=== PATIENT | male | born 1955 | race Caucasian/White ===

== ENCOUNTER 2020-03-29 06:21 | Inpatient (IN) | payer MEDICARE, OTHER ==
[2020-03-29] MEDS ORDERED: Midazolam HCl 2 mg/2 ml Vial ONE (06:55)
[2020-03-29] MEDS ORDERED: Acetaminophen 325 MG TAB PO PRN (08:01)
[2020-03-29] MEDS ORDERED: Morphine 4 MG/ML VIAL SLOW IVP PRN (08:01)
[2020-03-29] MEDS ORDERED: Ondansetron ODT 4 MG TAB SL PRN (08:01)
[2020-03-29] MEDS ORDERED: Lactated Ringer's 1,000 ML IV SCH (08:01)
[2020-03-29] MEDS ORDERED: Ondansetron PF 4 MG/2 ML Vial IVP PRN (08:01)
--- NOTE | 2020-03-29 09:03 | RAD ---
Radiograph abdomen one view: 03/29/2020 HISTORY: 64-year-old male with abdominal pain. "Small bowel obstruction transfer" COMPARISON: 03/27/2020 FINDINGS: There are 2 air-filled loops of small bowel in the upper abdomen, with caliber at upper limits of nor mal. There is a small amount of gas in a bowel loop in right lower quadrant. There is less gas now than on the prior KUB. There is a new catheter distal tip in body of stomach. There is moderate amoun t of gas in the stomach. IMPRESSION: 1. Paucity of bowel gas obscures the fact that there are multiple dilated fluid-filled small bowel lo ops demonstrated on CT of the same day, representing small bowel obstruction. 2. Esophagogastric tube in stomach
[2020-03-29 10:28] VITALS: BMI 30.3
--- NOTE | 2020-03-29 14:45 | PDOC.HHP ---
Hospitalist HPI abdominal pain History of Present Illness: This is a 64 year old male with history of prediabetes who presented to the ER with abdominal pain. He felt a knot in his stomach that was causing him discomfort this past week. The knot then started to cause him pain, so on Monday night he came to the ER. He was discharged home. When he got home, he did not feel like eating, was unable to pass gas or have any bowel movements, so he came back to the ER. The patient described the pain as a twisting, bloating sensati on that temporarily subsided, but came back around the time of his CT scan. He denied any radiation of his pain. He did not take anything at home to try to alleviate the pain. His pain was worsened by eating. He threw up after the contrast from his CT scan and had some nausea. He reports only two bowel movements in the past one week, which he describes as osito. He also reports less than 100 cc urine output for the past one week as well. The patient was diagnosed with COVID last week. He reports experiencing daily low grade fevers of 99 every afternoon. He also had a dry cough that subsided a few days ago but then came back yesterday. He denies chest pain, sore throat, runny nose. ED Course: When the patient presented to the ER, he had normal vitals. Labs showed sodium of 129, WBC of 13.67. UA was negative. Abdominal X ray showed paucity of bowel gas and multiple dilated fluid filled bowel loops concerning for obstruction. Chest x ray showed left lower lobe infiltrate. CT abdomen showed a small bowel obstruction, a small ventral hernia which contains several loops of dilated bowel. The patient was given 1L of fluid and 2 mg of versed. He had an NG tube placed. The patient states his pain has significantly improvement after placement of an NG tube Allergies/Adverse Reactions: Allergy/AdvReac Type Severity Reaction Status Date / Time No Known Allergies Allergy Verified 03/29/20 10:27 Home Medications: Medication Instructions Recorded Confirmed Type Doxycycline Monohydrate 100 mg PO BID 03/29/20 03/29/20 History metFORMIN [Glucophage] 500 mg PO QAM-WM 03/29/20 03/29/20 History Past History: PMHx: Prediabetes PSHx: SPlenectomy Bilateral arm surgery Hip replacement 2016 FHx: Both parents had hypertension, dad had CHF Social: The patient has never smoked. He does not drink. Denies alcohol or illicit drug use Hospitalist KATRINA ZAMORANO Constitutional: denies: fever, chills Eyes: denies: pain, vision change Respiratory: reports: cough. denies: dry, shortness of breath Cardiovascular: denies: chest pain, palpitations, orthopnea, paroxysmal noc. dyspnea Gastrointestinal: reports: nausea, vomiting (once after injection for CT scan), abdominal pain (improving) Genitourinary: denies: dysuria, frequency Musculoskeletal: denies: neck pain, shoulder pain Neurological: denies: weakness, numbness Hospitalist Exam Vitals: Vital Signs (12 hours) Temp Pulse Resp BP Pulse Ox 03/29/20 12:10 93 L 03/29/20 12:08 99.1 F 84 18 114/71 94 L 03/29/20 12:07 93 L 03/29/20 10:28 98.2 F 80 24 H 132/75 Weight Weight 217 lb 5 oz General Appearance: NAD, awake alert Eye: PERRL, anicteric sclera ENT: normocephalic atraumatic, no oropharyngeal lesions Neck: no JVD Heart: RRR, no murmur, no gallops, no rubs Respiratory: no ronchi, normal chest expansion Respiratory - other findings: mild crackles at the bases Gastrointestinal: soft, non-tender, non-distended Gastrointestinal - other findings: hypoactive bowel sounds Extremities: no cyanosis, no clubbing, no edema Skin: normal turgor, no lesions, no rashes Neurological: cranial nerve grossly intact, normal sensation to touch, no weakness Musculoskeletal: normal strength Psychiatric: normal affect, normal behavior, A&O x 3, oriented to person Hospitalist H&P A/P Plan: Abdominal X ray: paucity of bowel gas and multiple dilated fluid filled bowel loops concerning for obstruction. Chest x ray :left lower lobe infiltrate. CT abdomen: small bowel obstruction, a small ventral hernia which contains several loops of dilated bowel. This is a 64 year old male with prediabetes who was admitted with abdominal pain, found to have small bowel obstruction Small bowel obstruction - CT scan showed small bowel obstruction. NG tube was placed. Surgical consult placed, will follow - keep NPO for now - will add zofran prn for vomiting #COVID+ #Pneumonia #Leukocytosis - on room air currently, will monitor for any hypoxia . Chest Xray shows left lower lobe infiltrate. He has no productive cough currently so will hold off antibiotics since he is positive for COVID. Consider starting if symptoms worsen Hyponatremia - sodium 129, likely from dehydration. Will add IV fluids Prediabetes - on metformin, will hold for now DVT prophylaxis: SCDS, ambulation, lovenox Code status: full code
[2020-03-29] MEDS ORDERED: Enoxaparin Sodium 40 MG/0.4 ML SYRINGE SC SCH (15:15)
[2020-03-29] MEDS: Sodium Chloride 0.9% 1,000 ML IV SCH (15:28)
[2020-03-29 15:33] LABS: SARS-CoV-2 PCR by NAA DETECTED (NotDetected)
[2020-03-30] MEDS: Sodium Chloride 0.9% 1,000 ML IV SCH ×5 (00:35→20:04)
[2020-03-30 07:41] LABS: #Basophils 0.1 thou/uL (0.0-0.2); #Eosinphils 0.4 thou/uL (0.0-0.7); #Lymphocytes 1.5 thou/uL (1.20-3.40); #Monocytes 1.4 thou/uL (0.11-0.59); #Neutrophils 9.5 thou/uL (1.40-6.50); %Basophils 0.4 % (0.0-1.0); %Eosinophils 3.4 % (0.0-10.0); %Lymphocytes 11.8 % (21.0-51.0); %Monocytes 10.6 % (0.0-10.0); %Neutrophils 73.9 % (42.0-75.0); Hemoglobin 15.1 g/dL (14.0-18.0); Mean Corpuscular HGB CONC 33.4 g/dL (32.0-36.0); Mean Corpuscular Hemoglobin 32.7 pg (27.0-31.0); Mean Platelet Volume 8.1 fL (7.4-10.4); Platelet Count 334 thou/uL (130-400); RBC Distribution Width 11.7 % (11.5-14.5); Red Blood Cell (RBC) Count 4.61 mill/uL (4.70-6.10); White Blood Cell (WBC) Count 12.8 thou/uL (4.8-10.8)
[2020-03-30] MEDS: Enoxaparin Sodium 40 MG/0.4 ML SYRINGE SC SCH (07:46)
[2020-03-30 07:52] LABS: INR-International Normal Ratio 1.1; Prothrombin Time 14.2 sec (12.0-14.7)
[2020-03-30 08:05] LABS: ALT (SGPT) 12 U/L (8-55); AST (SGOT) 20 U/L (5-34); Albumin 3.3 g/dL (3.4-4.8); Alkaline Phosphatase 68 U/L (40-110); Anion Gap 12 mmol/L (10-20); BUN (Urea Nitrogen) 15 mg/dL (8.4-25.7); Bilirubin, Total 0.9 mg/dL (0.2-1.2); Calc. Creatinine Clearance 109 mL/min (70-130); Calcium 8.3 mg/dL (7.8-10.44); Carbon Dioxide 25 mmol/L (23-31); Chloride 103 mmol/L (98-107); Globulin 2.9 g/dL (2.4-3.5); Glucose 102 mg/dL (80-115); Magnesium 2.1 mg/dL (1.6-2.6); Potassium 3.7 mmol/L (3.5-5.1); Protein, Total 6.2 g/dL (5.8-8.1); Sodium 136 mmol/L (136-145)
--- NOTE | 2020-03-30 11:23 | PDOC.EVN ---
Event Note - Event Note Event Note: full dictation to follow. SBO, likely to resolve without surgery. Plan SBFT tomorrow.
--- NOTE | 2020-03-30 12:48 | CON ---
DATE OF CONSULTATION: 03/30/2020 CHIEF COMPLAINT: Bowel obstruction. HISTORY OF PRESENT ILLNESS: This is a 64-year-old male with a history of open splenectomy for trauma, who presents with a history of abdominal cramping pain associated with nausea, but no vomiting. He had not had a bowel movement for 4 to 5 days before admission to the hospital. He was transferred here from [facility]. He was COVID positive a week ago on Monday and this pain started later on in the week. He was transferred to [place] for higher level of care. He has NG tube in place that has put out minimal overnight. He denies any significant nausea. His pain is controlled. He has been having some urinary retention and has over 300 mL of urine in his bladder on bladder scan. He has only been able to urinate 40 mL at a time, but pain hedrick, he is doing well. PAST MEDICAL HISTORY: Includes COVID pneumonia, borderline diabetes. PAST SURGICAL HISTORY: Splenectomy, bilateral orthopedic arm surgery, hip replacement. MEDICINES: Metformin. ALLERGIES: NO KNOWN DRUG ALLERGIES. SOCIAL HISTORY: No smoking, alcohol, or other drugs. REVIEW OF SYSTEMS: Ten-system review of systems is otherwise negative unless described above. PHYSICAL EXAMINATION: VITAL SIGNS: Blood pressure is 150/80, pulse 84, respirations 20, he is afebrile. His NG tube has only put out 50 mL overnight. CHEST: Clear. HEART: Regular rate. ABDOMEN: Soft, minimally distended, mildly diffusely tender. Well-healed midline incision without hernia. EXTREMITIES: No ischemia or edema to extremities. LABORATORY DATA: White blood cell count is 12, hemoglobin 15, platelet count is 334. Creatinine is 0.94. Readings from CT scan of the abdomen from [place] was reviewed showing small-bowel obstruction, transition point in the upper abdomen. ASSESSMENT: 1. Partial small-bowel obstruction, likely secondary to adhesions from previous surgery. 2. COVID pneumonia, stable. PLAN: No need for surgical intervention at this time. Plan Gastrografin small-bowel follow-through tomorrow. Continue NG tube today. We will follow with you. Job ID: [id number]
--- NOTE | 2020-03-30 16:24 | PDOC.HOSPP ---
- Subjective Subjective: complaints of abd fullness, urinary retention, decr output. labs ok. denies n/v. NGT in place. appreciate surgery input - Objective Vital Signs & Weight: Vital Signs (12 hours) Temp Pulse Resp BP Pulse Ox 03/30/20 08:35 95 03/30/20 07:00 98.2 F 84 20 150/80 H 96 Weight Weight 217 lb 5 oz I&O: 03/29/20 03/30/20 03/31/20 06:59 06:59 06:59 Intake Total 350 Output Total 950 Balance -600 Result Diagrams: 03/30/20 07:30 03/30/20 07:30 Radiology Reviewed by me: Yes EKG Reviewed by me: Yes Hospitalist ROS - Medication Medications: Active Medications Generic Name Dose Route Start Last Admin Trade Name Freq PRN Reason Stop Dose Admin Enoxaparin Sodium 40 mg 03/30/20 09:00 03/30/20 07:46 Enoxaparin Sodium 40 Mg/0.4 Ml Syringe SC 40 mg 0900 [facility] Administration Sodium Chloride 1,000 mls @ 100 mls/hr 03/29/20 15:00 03/30/20 07:53 Normal Saline 0.9% IV Not Given .Q10H [facility] Hospitalist Exam Vitals: Vital Signs (12 hours) Temp Pulse Resp BP Pulse Ox 03/30/20 08:35 95 03/30/20 07:00 98.2 F 84 20 150/80 H 96 Weight Weight 217 lb 5 oz General Appearance: NAD Eye: PERRL ENT: normocephalic atraumatic Neck: supple Heart: RRR Respiratory: CTAB, no wheezes Gastrointestinal: soft, non-tender, diminished bowl sounds Extremities: no cyanosis Skin: normal turgor Neurological: cranial nerve grossly intact Musculoskeletal: normal tone Psychiatric: normal affect, normal behavior, A&O x 3 Hosp A/P - Plan This is a 64 year old male with prediabetes who was admitted with abdominal pa in, found to have small bowel obstruction Partial Small bowel obstruction - CT scan showed small bowel obstruction. - cont conservative mgt. NGT to LWS. appreciate Surgery input. - cont IVF hydration, replace lyte prn. Follow SBFT tomorrow Urinary retention - with oliguria. - add Flomax, Hicks - cont IVF hydration. Renal function stable. Follow BMP #COVID+ #Pneumonia #Leukocytosis - on room air currently, will monitor for any hypoxia . Chest Xray shows left lower lobe infiltrate. He has no productive cough currently so will hold off antibiotics since he is positive for COVID. Consider starting if symptoms worsen Hyponatremia - mild, normalized. Prediabetes - on metformin, will hold for now DVT prophylaxis: SCDS, ambulation, lovenox Code status: full code
[2020-03-31] MEDS: Sodium Chloride 0.9% 1,000 ML IV SCH ×2 (05:46→16:32)
[2020-03-31 06:05] LABS: #Eosinphils 0.9 thou/uL (0.0-0.7); #Lymphocytes 2.2 thou/uL (1.20-3.40); #Monocytes 1.3 thou/uL (0.11-0.59); #Neutrophils 7.5 thou/uL (1.40-6.50); %Basophils 0.2 % (0.0-1.0); %Eosinophils 7.4 % (0.0-10.0); %Lymphocytes 18.7 % (21.0-51.0); %Monocytes 10.8 % (0.0-10.0); %Neutrophils 62.9 % (42.0-75.0); Mean Corpuscular HGB CONC 33.8 g/dL (32.0-36.0); Mean Corpuscular Hemoglobin 33.5 pg (27.0-31.0); Mean Corpuscular Volume 99.1 fL (78.0-98.0); Mean Platelet Volume 8.1 fL (7.4-10.4); Platelet Count 363 thou/uL (130-400); RBC Distribution Width 11.9 % (11.5-14.5); Red Blood Cell (RBC) Count 4.18 mill/uL (4.70-6.10); White Blood Cell (WBC) Count 11.9 thou/uL (4.8-10.8)
[2020-03-31 06:33] LABS: Anion Gap 14 mmol/L (10-20); BUN (Urea Nitrogen) 17 mg/dL (8.4-25.7); Calc. Creatinine Clearance 112 mL/min (70-130); Calcium 8.2 mg/dL (7.8-10.44); Carbon Dioxide 24 mmol/L (23-31); Chloride 107 mmol/L (98-107); Glucose 81 mg/dL (80-115); Magnesium 2.1 mg/dL (1.6-2.6); Potassium 3.8 mmol/L (3.5-5.1); Sodium 141 mmol/L (136-145)
[2020-03-31] MEDS: Enoxaparin Sodium 40 MG/0.4 ML SYRINGE SC SCH (08:11)
[2020-03-31] MEDS: Tamsulosin HCl 0.4 MG CAP PO SCH (08:51)
[2020-03-31] MEDS ORDERED: MD-Gastroview 120 ML BOT ONE (12:15)
[2020-03-31] MEDS ORDERED: Ketorolac Tromethamine 30 MG/ML VIAL IVP PRN (15:55)
--- NOTE | 2020-03-31 16:29 | PDOC.HOSPP ---
- Subjective Subjective: Pt reports positive for flatus. voiding fine. SBFT pending. - Objective Vital Signs & Weight: Vital Signs (12 hours) Temp Pulse Resp BP Pulse Ox 03/31/20 08:30 94 L 03/31/20 08:10 98.1 F 90 20 134/71 94 L Weight Weight 217 lb 5 oz I&O: 03/30/20 03/31/20 04/01/20 06:59 06:59 06:59 Intake Total 350 2400 Output Total 950 1050 Balance -600 1350 Result Diagrams: 03/31/20 05:24 03/31/20 05:24 Hospitalist ROS - Medication Medications: Active Medications Generic Name Dose Route Start Last Admin Trade Name Freq PRN Reason Stop Dose Admin Enoxaparin Sodium 40 mg 03/30/20 09:00 03/31/20 08:11 Enoxaparin Sodium 40 Mg/0.4 Ml Syringe SC 40 mg 0900 [facility] Administration Sodium Chloride 1,000 mls @ 100 mls/hr 03/29/20 15:00 03/31/20 05:46 Normal Saline 0.9% IV 1,000 mls .Q10H [facility] Administration Ketorolac Tromethamine 30 mg 03/31/20 15:55 03/31/20 15:59 Ketorolac Tromethamine 30 Mg/Ml Vial IVP 04/05/20 15:56 30 mg Q6H PRN Administration Pain Sodium Chloride 10 ml 03/30/20 21:00 03/31/20 08:11 Flush - Normal Saline 10 Ml Syringe IVF 10 ml Q12HR [facility] Administration Tamsulosin HCl 0.4 mg 03/31/20 09:00 03/31/20 08:51 Tamsulosin Hcl 0.4 Mg Cap PO 0.4 mg DAILY [facility] Administration Hospitalist Exam Vitals: Vital Signs (12 hours) Temp Pulse Resp BP Pulse Ox 03/31/20 08:30 94 L 03/31/20 08:10 98.1 F 90 20 134/71 94 L Weight Weight 217 lb 5 oz General Appearance: NAD Eye: PERRL ENT: normocephalic atraumatic Neck: supple Heart: RRR Respiratory: CTAB, no wheezes Gastrointestinal: soft, diminished bowl sounds Extremities: no cyanosis Skin: normal turgor Hosp A/P - Plan This is a 64 year old male with prediabetes who was admitted with abdominal pain, found to have small bowel obstruction Partial Small bowel obstruction -cont conservative mgt. SBFT pending. Surgery is following - lytes OK. Follow AM labs Urinary retention - with oliguria. Resolved - cont Flomax. voiding well. Renal function normal. #COVID+ #Pneumonia #Leukocytosis - on room air currently, will monitor for any hypoxia . Chest Xray shows left lower lobe infiltrate. He has no productive cough currently so will hold off antibiotics since he is positive for COVID. Consider starting if symptoms worsen Hyponatremia - mild, normalized. Prediabetes - on metformin, will hold for now DVT prophylaxis: SCDS, ambulation, lovenox Code status: full code
--- NOTE | 2020-03-31 17:15 | RAD ---
EXAM: XR Small Bowel STANDARD PROVIDED CLINICAL HISTORY: Small bowel obstruction COMPARISON: CT abdomen and pelvis on 03/29/2020 FINDINGS: Nasogastric tube is noted in place. There are dilated loops of small bowel present also noted on CT e xam. There is persistent contrast seen within the stomach on the 6 hour delayed image with dilated contrast filled loops of small bowel seen. No contrast is seen in the colon on the 6 hour image. Find ings are compatible with small bowel obstruction. Prior CT examination did demonstrate normal caliber loops of small bowel further distally suggesting a high-grade partial small bowel obstruction . IMPRESSION: High-grade partial small bowel obstruction corresponding to findings on recent CT exam.
--- NOTE | 2020-03-31 17:28 | PDOC.GSPN ---
Surgery Progress Note: Subj - Subjective Narrative: c/o more bloating with SBFT today. No bm yet. Contrast did not make it to colon in 6 hours Surgery Progress Note: Obj - Vital signs Vital signs: Vital Signs - Most Recent Temp Pulse Resp BP Pulse Ox 98.1 F 90 20 134/71 94 L 03/31/20 08:10 03/31/20 08:10 03/31/20 08:10 03/31/20 08:10 03/31/20 08:30 - Physical Exam General: no distress Cardiovascular: regular rate and rhythm Respiratory: clear to auscultation Abdomen: soft, decreased bowel sounds, distended, other (No guarding or rebound) Surgery Progress Note: Results - Labs Result Diagrams: 03/31/20 05:24 03/31/20 05:24 Lab results: Laboratory Results - last 12 hr 03/31/20 03/31/20 05:24 05:24 WBC 11.9 H RBC 4.18 L Hgb 14.0 Hct 41.4 L MCV 99.1 H MCH 33.5 H MCHC 33.8 RDW 11.9 Plt Count 363 MPV 8.1 Neutrophils % 62.9 Lymphocytes % 18.7 L Monocytes % 10.8 H Eosinophils % 7.4 Basophils % 0.2 Neutrophils # 7.5 H Lymphocytes # 2.2 Monocytes # 1.3 H Eosinophils # 0.9 H Basophils # 0.0 Sodium 141 Potassium 3.8 Chloride 107 Carbon Dioxide 24 Anion Gap 14 BUN 17 Creatinine 0.92 Estimated GFR (MDRD) 83 Glucose 81 Calcium 8.2 Magnesium 2.1 Surgery Progress Note: A/P - Problem (1) Small bowel obstruction Current Visit: Yes Code(s): K56.609 - UNSP INTESTNL OBST, UNSP TO PARTIAL VERSUS COMPLETE OBST Status: Acute - Plan Plan: No contrast to colon in 6 hours -if no colon contrast in am will need ex lap, [place] -fluid bolus for low uop. -bladder scan, if high place abel.
[2020-03-31] MEDS ORDERED: Sodium Chloride 0.9% 1,000 ML IV SCH (17:30)
[2020-04-01] MEDS: Sodium Chloride 0.9% 1,000 ML IV SCH ×2 (07:30→15:48)
[2020-04-01] MEDS: Tamsulosin HCl 0.4 MG CAP PO SCH (08:38)
[2020-04-01] MEDS: Enoxaparin Sodium 40 MG/0.4 ML SYRINGE SC SCH (08:38)
--- NOTE | 2020-04-01 11:55 | RAD ---
Exam: 2 views abdomen HISTORY: Small bowel obstruction. Patient is status post Gastrografin small bowel into 04/18/2020 FINDINGS: Supine and upright view of the abdomen demonstrate persistent distended contrast-filled loo ps of small bowel with differential air-fluid levels. Paucity of air and contrast in the colon. Nasogastric tube is identified IMPRESSION: Persistent dilatation of the small bowel with contrast. High-grade small bowel obstructio n Findings conveyed to Dr. Gregorio [address] [place] connect to 05/16/2020 at 11:51 AM Code CR
[2020-04-01 13:26] LABS: #Eosinphils 0.5 thou/uL (0.0-0.7); #Lymphocytes 1.6 thou/uL (1.20-3.40); #Neutrophils 7.8 thou/uL (1.40-6.50); %Basophils 0.4 % (0.0-1.0); %Eosinophils 4.2 % (0.0-10.0); %Lymphocytes 14.9 % (21.0-51.0); %Monocytes 9.4 % (0.0-10.0); %Neutrophils 71.2 % (42.0-75.0); Hemoglobin 14.9 g/dL (14.0-18.0); Mean Corpuscular HGB CONC 33.7 g/dL (32.0-36.0); Mean Corpuscular Hemoglobin 33.4 pg (27.0-31.0); Mean Corpuscular Volume 99.3 fL (78.0-98.0); Mean Platelet Volume 7.9 fL (7.4-10.4); Platelet Count 458 thou/uL (130-400); RBC Distribution Width 11.8 % (11.5-14.5); Red Blood Cell (RBC) Count 4.44 mill/uL (4.70-6.10)
[2020-04-01 13:44] LABS: Anion Gap 14 mmol/L (10-20); BUN (Urea Nitrogen) 19 mg/dL (8.4-25.7); Calc. Creatinine Clearance 121 mL/min (70-130); Calcium 8.6 mg/dL (7.8-10.44); Carbon Dioxide 25 mmol/L (23-31); Chloride 108 mmol/L (98-107); Glucose 92 mg/dL (80-115); Potassium 3.9 mmol/L (3.5-5.1); Sodium 143 mmol/L (136-145)
--- NOTE | 2020-04-01 15:48 | PRG ---
DATE OF SERVICE: 04/01/2020 SUBJECTIVE: Mr. Carson had a couple bowel movements this morning, that he described as large. He has no complaints. No nausea. No bloating. X-rays done this morning show continued high-grade small-bowel obstruction. He does have some contrast in his colon, however. OBJECTIVE: On physical examination, his abdomen is soft. It is distended. He has occasional bowel sounds. NG tube output looks more bilious today. ASSESSMENT: High-grade small-bowel obstruction, but having a few bowel movements. The clinical picture is confusing. I think this is a partial obstruction, not a high-grade, however, now that he is 3 to 4 days into this. If not completely resolved by tomorrow, we will perform exploratory laparotomy. We will see him 1st thing in the morning to decide. Job ID: [id number]
--- NOTE | 2020-04-01 16:08 | PDOC.HOSPP ---
- Subjective Subjective: Patient was seen examined at bedside. He is further significant output from his NG tube. He also had a bowel movement today. However, his imaging studies showed that he has high-grade small bowel obstruction. His belly is benign, however she does have diminished bowel sounds. He denies any abdominal pain, but does complain of abdominal fullness. Surgery is following. - Objective Vital Signs & Weight: Vital Signs (12 hours) Temp Pulse Resp BP Pulse Ox 04/01/20 08:00 92 L 04/01/20 07:43 97.7 F 84 20 149/80 H 92 L Weight Weight 217 lb 5 oz I&O: 03/31/20 04/01/20 04/02/20 06:59 06:59 06:59 Intake Total 2400 2200 Output Total 1050 550 Balance 1350 1650 Result Diagrams: 04/01/20 13:09 04/01/20 13:09 Radiology Reviewed by me: Yes EKG Reviewed by me: Yes Hospitalist ROS - Medication Medications: Active Medications Generic Name Dose Route Start Last Admin Trade Name Freq PRN Reason Stop Dose Admin Enoxaparin Sodium 40 mg 03/30/20 09:00 04/01/20 08:38 Enoxaparin Sodium 40 Mg/0.4 Ml Syringe SC 40 mg 0900 [facility] Administration Sodium Chloride 1,000 mls @ 100 mls/hr 03/29/20 15:00 04/01/20 15:48 Normal Saline 0.9% IV 1,000 mls .Q10H [facility] Administration Ketorolac Tromethamine 30 mg 03/31/20 15:55 03/31/20 15:59 Ketorolac Tromethamine 30 Mg/Ml Vial IVP 04/05/20 15:56 30 mg Q6H PRN Administration Pain Sodium Chloride 10 ml 03/30/20 21:00 04/01/20 08:39 Flush - Normal Saline 10 Ml Syringe IVF Not Given Q12HR [facility] Tamsulosin HCl 0.4 mg 03/31/20 09:00 04/01/20 08:38 Tamsulosin Hcl 0.4 Mg Cap PO 0.4 mg DAILY [facility] Administration Hospitalist Exam Vitals: Vital Signs (12 hours) Temp Pulse Resp BP Pulse Ox 04/01/20 08:00 92 L 04/01/20 07:43 97.7 F 84 20 149/80 H 92 L Weight Weight 217 lb 5 oz General Appearance: NAD Eye: PERRL ENT: normocephalic atraumatic Neck: supple Heart: RRR Respiratory: CTAB Gastrointestinal: soft Extremities: no cyanosis Skin: normal turgor Neurological: cranial nerve grossly intact Musculoskeletal: normal tone, normal strength, no muscle wasting Psychiatric: normal affect, normal behavior, A&O x 3 Hosp A/P - Plan This is a 64 year old male with prediabetes who was admitted with abdominal pain, found to have small bowel obstruction Partial Small bowel obstruction - likely d/t adhesions from previous surgery --pt has bowel movement. No surgical abd on exam although he has diminished bowel sound. --SBFT shows high grade sbo; however, his clinical picture does not suggestive of high grade that requires emergent surgical intervention. --Cont NGT to LWS. Surgery is following, and consider ex lap in AM if no improvement. --Appreciate Dr. Gregorio's input Urinary retention - with oliguria. Resolved - cont Flomax. voiding well. Renal function normal. Consider Hicks placement if necessary #COVID+ #Pneumonia #Leukocytosis - on room air currently, will monitor for any hypoxia . Chest Xray shows left lower lobe infiltrate. He has no productive cough currently so will hold off antibiotics since he is positive for COVID. Consider starting if symptoms worsen Hyponatremia - mild, normalized. Prediabetes - on metformin, will hold for now DVT prophylaxis: SCDS, ambulation, lovenox Code status: full code
[2020-04-02] MEDS: Sodium Chloride 0.9% 1,000 ML IV SCH ×4 (02:20→20:44)
[2020-04-02 06:47] LABS: #Eosinphils 0.6 thou/uL (0.0-0.7); #Lymphocytes 2.2 thou/uL (1.20-3.40); #Neutrophils 5.9 thou/uL (1.40-6.50); %Basophils 0.4 % (0.0-1.0); %Eosinophils 6.5 % (0.0-10.0); %Lymphocytes 22.4 % (21.0-51.0); %Monocytes 9.9 % (0.0-10.0); %Neutrophils 60.9 % (42.0-75.0); Hemoglobin 14.2 g/dL (14.0-18.0); Mean Corpuscular Hemoglobin 33.2 pg (27.0-31.0); Mean Platelet Volume 7.9 fL (7.4-10.4); Platelet Count 439 thou/uL (130-400); RBC Distribution Width 11.7 % (11.5-14.5); Red Blood Cell (RBC) Count 4.28 mill/uL (4.70-6.10); White Blood Cell (WBC) Count 9.7 thou/uL (4.8-10.8)
[2020-04-02 06:53] LABS: INR-International Normal Ratio 1.1; Prothrombin Time 14.7 sec (12.0-14.7)
[2020-04-02 07:15] LABS: Anion Gap 18 mmol/L (10-20); BUN (Urea Nitrogen) 20 mg/dL (8.4-25.7); Calc. Creatinine Clearance 124 mL/min (70-130); Calcium 8.4 mg/dL (7.8-10.44); Carbon Dioxide 20 mmol/L (23-31); Chloride 111 mmol/L (98-107); Glucose 83 mg/dL (80-115); Potassium 3.5 mmol/L (3.5-5.1); Sodium 145 mmol/L (136-145)
[2020-04-02] MEDS: Enoxaparin Sodium 40 MG/0.4 ML SYRINGE SC SCH (07:26)
--- NOTE | 2020-04-02 07:57 | PRG ---
DATE OF SERVICE: 04/02/2020 SUBJECTIVE: Mr. Carson has no significant bowel function. He is still distended. OBJECTIVE: VITAL SIGNS: He is afebrile. Vital signs are stable. ABDOMEN: Distended. He has very little bowel sounds. He is diffuse mildly tender. ASSESSMENT: Small bowel obstruction, high grade, partial. He did have a few bowel movements after his small bowel follow through, but it has not completely resolved after 5 days. PLAN: Exploratory laparotomy. Risks, benefits, and alternatives discussed. He gave consent. We will do this today. Job ID: [id number]
[2020-04-02] MEDS ORDERED: cefOXitin Sodium/Dextrose 2 GM/50 ML BAG ONE (08:35)
[2020-04-02] MEDS ORDERED: Fentanyl 100 MCG/2 ML VIAL ONE ×3 (08:44→11:39)
[2020-04-02] MEDS ORDERED: Bupivacaine 0.25% HCL 30 ML VIAL ONE (08:52)
[2020-04-02] MEDS ORDERED: Rocuronium Bromide 10 MG/ML (10ML VIAL) ONE (09:58)
[2020-04-02] MEDS ORDERED: PHENYLEPHRINE-NS 100 MCG/ML 10 ML SYRINGE ONE (09:58)
[2020-04-02] MEDS ORDERED: diphenhydrAMINE 50 MG/ML VIAL ONE (09:58)
[2020-04-02] MEDS ORDERED: Succinylcholine 200 MG/10 ml SYRINGE FS ONE (09:58)
[2020-04-02] MEDS ORDERED: Ondansetron PF 4 MG/2 ML Vial ONE (09:58)
[2020-04-02] MEDS ORDERED: PROPOFOL 200 MG/20 ML VIAL ONE (09:58)
[2020-04-02] MEDS ORDERED: Lidocaine 1% PF 5 ML VIAL ONE (09:58)
[2020-04-02] MEDS ORDERED: Glycopyrrolate 0.2 MG/ML 5 ML SYRINGE ONE (09:58)
[2020-04-02] MEDS ORDERED: Ondansetron HCl/PF 4 MG/2 ML Vial IVP PRN (10:53)
[2020-04-02] MEDS ORDERED: Promethazine HCl 25 MG/ML VIAL SLOW IVP PRN (10:53)
[2020-04-02] MEDS ORDERED: Promethazine HCl 25 MG/ML VIAL IM PRN ×3 (10:53→11:08)
[2020-04-02] MEDS ORDERED: hydrALAZINE 20 MG/ML VIAL SLOW IVP PRN (10:58)
[2020-04-02] MEDS ORDERED: Dextrose 50% Abboject 50 ML SYRINGE SLOW IVP PRN ×2 (10:58)
[2020-04-02] MEDS ORDERED: Ondansetron PF 4 MG/2 ML Vial IVP PRN ×2 (10:58→11:08)
[2020-04-02] MEDS ORDERED: HumaLOG 300 UNITS/3 ML VIAL SC PRN (10:58)
[2020-04-02] MEDS ORDERED: Dextrose 5% in Water 1,000 ML IV PRN (10:58)
[2020-04-02] MEDS ORDERED: Ketorolac Tromethamine 30 MG/ML VIAL IVP PRN (10:58)
[2020-04-02] MEDS ORDERED: diphenhydrAMINE 50 MG/ML VIAL IVP PRN (11:08)
[2020-04-02] MEDS ORDERED: diphenhydrAMINE 50 MG/ML VIAL IM PRN (11:08)
[2020-04-02] MEDS ORDERED: diphenhydrAMINE 25 MG CAP PO PRN (11:08)
[2020-04-02] MEDS ORDERED: Zolpidem Tartrate 5 MG TAB PO PRN (11:08)
[2020-04-02] MEDS ORDERED: fentaNYL Citrate/PF 2,000 MCG in Sodium Chloride 0.9% 60 ML IV PRN (11:08)
[2020-04-02] MEDS ORDERED: Naloxone HCl 0.4 mg/ml Vial IV PRN (11:08)
[2020-04-02] MEDS ORDERED: Communication Order-Pharmacy FS SCH (11:15)
[2020-04-02] MEDS ORDERED: Ketorolac Tromethamine 30 MG/ML VIAL ONE (11:39)
[2020-04-02] MEDS: Tamsulosin HCl 0.4 MG CAP PO SCH (12:20)
--- NOTE | 2020-04-02 16:47 | PDOC.HOSPP ---
- Subjective Subjective: Patient was seen examined at bedside. He underwent ex lap today. He tolerated procedure well. Patient complained of expected postoperative pain. He is currently is on [employer] pump. - Objective Vital Signs & Weight: Vital Signs (12 hours) Temp Pulse Resp BP Pulse Ox 04/02/20 16:22 97.6 F 87 18 139/76 96 04/02/20 15:01 81 135/74 96 04/02/20 14:31 80 131/74 96 04/02/20 14:01 78 131/73 97 04/02/20 13:31 82 136/77 95 04/02/20 13:01 78 131/71 95 04/02/20 12:35 98.3 F 83 20 130/72 95 04/02/20 08:06 98.0 F 106 H 20 144/83 H 93 L 04/02/20 07:30 93 L 04/02/20 05:41 98.1 F 69 18 147/79 H 95 Weight Admit Weight 217 lb 5 oz Weight 217 lb 5 oz I&O: 04/01/20 04/02/20 04/03/20 06:59 06:59 06:59 Intake Total 2200 1200 Output Total 550 Balance 1650 1200 Result Diagrams: 04/02/20 06:08 04/02/20 06:08 Hospitalist ROS - Medication Medications: Active Medications Generic Name Dose Route Start Last Admin Trade Name Freq PRN Reason Stop Dose Admin Sodium Chloride 1,000 mls @ 110 mls/hr 04/02/20 10:58 04/02/20 12:35 Normal Saline 0.9% IV 1,000 mls .[id number] [facility] Administration Hospitalist Exam Vitals: Vital Signs (12 hours) Temp Pulse Resp BP Pulse Ox 04/02/20 16:22 97.6 F 87 18 139/76 96 04/02/20 15:01 81 135/74 96 04/02/20 14:31 80 131/74 96 04/02/20 14:01 78 131/73 97 04/02/20 13:31 82 136/77 95 04/02/20 13:01 78 131/71 95 04/02/20 12:35 98.3 F 83 20 130/72 95 04/02/20 08:06 98.0 F 106 H 20 144/83 H 93 L 04/02/20 07:30 93 L 04/02/20 05:41 98.1 F 69 18 147/79 H 95 Weight Admit Weight 217 lb 5 oz Weight 217 lb 5 oz General Appearance: NAD Eye: PERRL ENT: normocephalic atraumatic Neck: supple Heart: RRR Respiratory: CTAB Gastrointestinal: soft, diminished bowl sounds Extremities: no cyanosis Skin: normal turgor Neurological: cranial nerve grossly intact Psychiatric: normal affect, normal behavior, A&O x 3 Hosp A/P - Plan This is a 64 year old male with prediabetes who was admitted with abdominal pain, found to have small bowel obstruction Partial Small bowel obstruction - likely d/t adhesions from previous surgery -failed conservative mgt. s/p ex-lap with TERRI on 04/02 -cont routine post-op mgt as per surgery. Encouraged IS. Urinary retention - Hicks in place. Cont Flomax Pneumonia due to COVID-19 -No significant respiratory symptoms. Continue monitor supportive cares. Hyponatremia - mild, normalized. Prediabetes - hold Metformin DVT prophylaxis: SCDS, ambulation, lovenox Code status: full code
[2020-04-02] MEDS: Famotidine/PF 20 mg/2ml Vial SLOW IVP SCH (20:44)
[2020-04-02] MEDS: Famotidine 20 MG TAB PO SCH (20:44)
[2020-04-03] MEDS: Sodium Chloride 0.9% 1,000 ML IV SCH (05:13)
[2020-04-03 05:57] LABS: #Eosinphils 0.1 thou/uL (0.0-0.7); #Lymphocytes 1.7 thou/uL (1.20-3.40); #Monocytes 1.3 thou/uL (0.11-0.59); #Neutrophils 14.4 thou/uL (1.40-6.50); %Basophils 0.2 % (0.0-1.0); %Eosinophils 0.8 % (0.0-10.0); %Lymphocytes 9.7 % (21.0-51.0); %Monocytes 7.4 % (0.0-10.0); Mean Corpuscular HGB CONC 32.6 g/dL (32.0-36.0); Mean Corpuscular Hemoglobin 32.7 pg (27.0-31.0); Mean Platelet Volume 7.8 fL (7.4-10.4); Platelet Count 460 thou/uL (130-400); RBC Distribution Width 11.9 % (11.5-14.5); Red Blood Cell (RBC) Count 4.28 mill/uL (4.70-6.10); White Blood Cell (WBC) Count 17.5 thou/uL (4.8-10.8)
[2020-04-03 06:16] LABS: Anion Gap 17 mmol/L (10-20); BUN (Urea Nitrogen) 17 mg/dL (8.4-25.7); Calc. Creatinine Clearance 125 mL/min (70-130); Calcium 7.9 mg/dL (7.8-10.44); Carbon Dioxide 19 mmol/L (23-31); Chloride 109 mmol/L (98-107); Glucose 94 mg/dL (80-115); Potassium 3.9 mmol/L (3.5-5.1); Sodium 141 mmol/L (136-145)
--- NOTE | 2020-04-03 07:34 | PDOC.GSPN ---
Surgery Progress Note: Subj - Subjective Narrative: Patient complains of mild abdominal pain, rated at 5/10, but tolerable. He has intermittent cramping pains, but these only last a few seconds before resolving. He is using his EDGE STITCHER, but attempting not to use it too often. Tolerating ice chips, but not hungry yet. He has not had a bowel movement or passed gas yet today. He is ambulating without difficulty. Denies any fever, chills, cough, SOB, chest pain, nausea, vomiting, diarrhea. Surgery Progress Note: Obj - Vital signs Vital signs: Vital Signs - Most Recent Temp Pulse Resp BP Pulse Ox 98.6 F 95 20 156/81 H 95 04/03/20 05:00 04/03/20 05:00 04/03/20 05:00 04/03/20 05:00 04/03/20 05:00 - Physical Exam General: no distress, well developed, well nourished Respiratory: clear to auscultation Abdomen: soft, nondistended, positive bowel sounds, appropriately tender (diffuse, but more so in the LLQ) Psychiatric: memory intact, speech is normal Wound: healing well (no erythema or drainage noted) Surgery Progress Note: Results - Labs Result Diagrams: 04/03/20 05:36 04/03/20 05:36 Lab results: Laboratory Results - last 12 hr 04/02/20 04/03/20 04/03/20 20:49 04:55 05:36 WBC RBC Hgb Hct MCV MCH MCHC RDW Plt Count MPV Neutrophils % Lymphocytes % Monocytes % Eosinophils % Basophils % Neutrophils # Lymphocytes # Monocytes # Eosinophils # Basophils # Sodium 141 Potassium 3.9 Chloride 109 H Carbon Dioxide 19 L Anion Gap 17 BUN 17 Creatinine 0.82 Estimated GFR (MDRD) Greater than 90 Glucose 94 POC Glucose 92 87 Calcium 7.9 04/03/20 05:36 WBC 17.5 H RBC 4.28 L Hgb 14.0 Hct 42.9 MCV 100.0 H MCH 32.7 H MCHC 32.6 RDW 11.9 Plt Count 460 H MPV 7.8 Neutrophils % 82.0 H Lymphocytes % 9.7 L Monocytes % 7.4 Eosinophils % 0.8 Basophils % 0.2 Neutrophils # 14.4 H Lymphocytes # 1.7 Monocytes # 1.3 H Eosinophils # 0.1 Basophils # 0.0 Sodium Potassium Chloride Carbon Dioxide Anion Gap BUN Creatinine Estimated GFR (MDRD) Glucose POC Glucose Calcium Surgery Progress Note: A/P - Plan Plan: Mr. Carson is a 64 year old male who presented with a SBO and is now post op day 1 from a exploratory laparotomy with adhesion lysis and incisional hernia repair with mesh. He is feeling much better today. Continue with pain control and begin transition from EDGE STITCHER to oral medications. Patient is encouraged on regular walking. 500 mLs of nasogastric fluid present in container since last night. Continue with ice chips this morning and consider advancing diet to clear liquids. Addendum - Physician - Physician Attestation Date/Time: 04/03/20 1223 I personally performed or re-performed the physical examination and medical decision making. I have verified all student documentation or findings, including history, physical exam and/or medical decision making. DC NG Clear liquids
[2020-04-03] MEDS: Famotidine/PF 20 mg/2ml Vial SLOW IVP SCH ×2 (08:12→22:06)
[2020-04-03] MEDS: Famotidine 20 MG TAB PO SCH ×2 (08:13→22:05)
[2020-04-03] MEDS: Enoxaparin Sodium 40 MG/0.4 ML SYRINGE SC SCH (08:13)
[2020-04-03] MEDS ORDERED: Sodium Chloride 0.9% 1,000 ML IV SCH (12:22)
--- NOTE | 2020-04-03 17:22 | PDOC.HOSPP ---
- Subjective Subjective: Patient was seen examined at bedside. Patient status post POD #1, complaint of postoperative pain, but tolerable. White count went up slightly likely due to reactive process from recent surgery. No fever. Electrolyte within normal limits. No acute events overnight. Discussed with surgery, plan to DC NG tube today, and start on clear liquid diet. - Objective Vital Signs & Weight: Vital Signs (12 hours) Temp Pulse Resp BP Pulse Ox 04/03/20 08:10 93 L 04/03/20 07:59 98.7 F 93 20 134/76 93 L Weight Admit Weight 217 lb 5 oz Weight 217 lb 5 oz I&O: 04/02/20 04/03/20 04/04/20 06:59 06:59 06:59 Intake Total 1200 1980 1160 Output Total 1900 600 Balance 1200 80 560 Result Diagrams: 04/03/20 05:36 04/03/20 05:36 Additional Labs: Accuchecks 04/03/20 04/03/20 04/03/20 16:38 12:10 04:55 POC Glucose 121 H 103 H 87 04/02/20 04/02/20 20:49 16:12 POC Glucose 92 81 Radiology Reviewed by me: Yes EKG Reviewed by me: Yes Hospitalist ROS - Medication Medications: Active Medications Generic Name Dose Route Start Last Admin Trade Name Freq PRN Reason Stop Dose Admin Enoxaparin Sodium 40 mg 04/03/20 09:00 04/03/20 08:13 Enoxaparin Sodium 40 Mg/0.4 Ml Syringe SC 40 mg 0900 CARL Administration Famotidine 20 mg 04/02/20 21:00 04/03/20 08:12 Famotidine/Pf 20 Mg/2ml Vial SLOW IVP 20 mg Q12HR CARL Administration Famotidine 20 mg 04/02/20 21:00 04/03/20 08:13 Famotidine 20 Mg Tab PO Not Given Q12HR CARL Ondansetron HCl 4 mg 04/02/20 10:58 04/03/20 15:44 Ondansetron Pf 4 Mg/2 Ml Vial IVP 4 mg Q6H PRN Administration Nausea/Vomiting Hospitalist Exam Vitals: Vital Signs (12 hours) Temp Pulse Resp BP Pulse Ox 04/03/20 08:10 93 L 04/03/20 07:59 98.7 F 93 20 134/76 93 L Weight Admit Weight 217 lb 5 oz Weight 217 lb 5 oz General Appearance: NAD Eye: PERRL ENT: normocephalic atraumatic Neck: supple Heart: RRR Respiratory: CTAB Gastrointestinal: soft Gastrointestinal - other findings: Midline surgical site, appeared to be healing well. No erythema or drainag Extremities: no cyanosis Skin: normal turgor Neurological: cranial nerve grossly intact Musculoskeletal: normal tone Psychiatric: normal affect, normal behavior, A&O x 3 Hosp A/P - Plan This is a 64 year old male with prediabetes who was admitted with abdominal pain, found to have small bowel obstruction High Grade, pSBO - likely d/t adhesions from previous surgery -failed conservative mgt. s/p ex-lap with TERRI on 04/02 -cont routine post-op mgt as per surgery. -d/w surgery, D/C NGT and start clear. d/w nursing staff, early mobilization. Encouraged IS. -possible home over the weekend if cont to do well. Urinary retention - Resolved. D/C Hicks. Cont flomax Pneumonia due to COVID-19 -No significant respiratory symptoms. Continue monitor supportive cares. Hyponatremia - mild, normalized. Prediabetes - hold Metformin DVT prophylaxis: SCDS, ambulation, lovenox Code status: full code
[2020-04-04] MEDS: Famotidine/PF 20 mg/2ml Vial SLOW IVP SCH (08:40)
[2020-04-04] MEDS: Enoxaparin Sodium 40 MG/0.4 ML SYRINGE SC SCH (08:41)
[2020-04-04] MEDS: Famotidine 20 MG TAB PO SCH ×2 (08:41→20:56)
[2020-04-04] MEDS ORDERED: Fentanyl 100 MCG/2 ML VIAL SLOW IVP PRN ×2 (09:42)
[2020-04-04] MEDS ORDERED: Acetaminophen 325 MG TAB PO PRN (09:43)
--- NOTE | 2020-04-04 09:47 | PDOC.GSPN ---
Surgery Progress Note: Subj - Subjective Narrative: C/O indigestion last night. Belching. No bm yet. Surgery Progress Note: Obj - Vital signs Vital signs: Vital Signs - Most Recent Temp Pulse Resp BP Pulse Ox 98.0 F 92 24 H 127/75 95 04/04/20 07:00 04/04/20 07:00 04/04/20 07:00 04/04/20 07:00 04/04/20 07:00 - Physical Exam General: no distress Cardiovascular: regular rate and rhythm Respiratory: clear to auscultation Abdomen: soft, appropriately tender, distended Wound: healing well Surgery Progress Note: Results - Labs Result Diagrams: 04/03/20 05:36 04/03/20 05:36 Lab results: Laboratory Results - last 12 hr 04/04/20 05:12 POC Glucose 117 H Surgery Progress Note: A/P - Problem (1) Small bowel obstruction Current Visit: Yes Code(s): K56.609 - UNSP INTESTNL OBST, UNSP TO PARTIAL VERSUS COMPLETE OBST Status: Acute - Plan Plan: POD 2 -stay on clears until more bowel function -Dr Kaiser seeing for me tomorrow
--- NOTE | 2020-04-04 14:48 | PDOC.HOSPP ---
- Subjective Encounter Date: 04/04/20 Encounter Time: 09:45 Subjective: Patient is walking around the hallway. He feels better. He had a bowel movement this morning. He is on clear liquid diet. His white count is slightly elevated at 17,000 postop - Objective Vital Signs & Weight: Vital Signs (12 hours) Temp Pulse Resp BP Pulse Ox 04/04/20 08:00 93 L 04/04/20 07:00 98.0 F 92 24 H 127/75 95 04/04/20 05:56 99.6 F 104 H 18 126/73 93 L Weight Admit Weight 217 lb 5 oz Weight 217 lb 5 oz I&O: 04/03/20 04/04/20 04/05/20 06:59 06:59 06:59 Intake Total 1980 1720 480 Output Total 1900 650 Balance 80 1070 480 Result Diagrams: 04/03/20 05:36 04/03/20 05:36 Additional Labs: Accuchecks 04/04/20 04/04/20 04/03/20 11:34 05:12 20:53 POC Glucose 133 H 117 H 122 H 04/03/20 04/03/20 16:38 12:10 POC Glucose 121 H 103 H Hospitalist ROS - Medication Medications: Active Medications Generic Name Dose Route Start Last Admin Trade Name Freq PRN Reason Stop Dose Admin Enoxaparin Sodium 40 mg 04/03/20 09:00 04/04/20 08:41 Enoxaparin Sodium 40 Mg/0.4 Ml Syringe SC 40 mg 0900 [facility] Administration Famotidine 20 mg 04/02/20 21:00 04/04/20 08:40 Famotidine/Pf 20 Mg/2ml Vial SLOW IVP 20 mg Q12HR CARL Administration Famotidine 20 mg 04/02/20 21:00 04/04/20 08:41 Famotidine 20 Mg Tab PO Not Given Q12HR [facility] Hospitalist Exam Vitals: Vital Signs (12 hours) Temp Pulse Resp BP Pulse Ox 04/04/20 08:00 93 L 04/04/20 07:00 98.0 F 92 24 H 127/75 95 04/04/20 05:56 99.6 F 104 H 18 126/73 93 L Weight Admit Weight 217 lb 5 oz Weight 217 lb 5 oz General Appearance: NAD, awake alert Eye: PERRL ENT: normocephalic atraumatic Neck: supple Heart: RRR, normal peripheral pulses Respiratory: CTAB, normal chest expansion Gastrointestinal: soft, normal bowel sounds Neurological: no focal deficits Hosp A/P - Plan 64 year old male with prediabetes who was admitted with abdominal pain, found to have small bowel obstruction High Grade, pSBO - likely d/t adhesions from previous surgery -failed conservative mgt. -s/p ex-lap with TERRI on 04/02 -cont routine post-op mgt as per surgery. Urinary retention - Resolved. Cont flomax Pneumonia due to COVID-19 -No significant respiratory symptoms. Continue monitor supportive cares. Hyponatremia - mild, normalized. Prediabetes - hold Metformin DVT prophylaxis: SCDS, ambulation, lovenox Code status: full code On clear liquid diet Continue ambulation.
[2020-04-05] MEDS: Famotidine/PF 20 mg/2ml Vial SLOW IVP SCH ×2 (02:01→08:19)
[2020-04-05] MEDS ORDERED: Digoxin 0.5 MG/2 ML AMP ONE (07:44)
[2020-04-05] MEDS ORDERED: Diltiazem 125 MG in Sodium Chloride 0.9% 100 ML IVPB SCH ×2 (07:45→11:00)
[2020-04-05] MEDS ORDERED: Digoxin 0.5 MG/2 ML AMP SLOW IVP SCH ×2 (07:45→12:00)
--- NOTE | 2020-04-05 07:49 | PDOC.BPN ---
- Brief Progress Note Encounter Date: 04/05/20 (code green) Encounter Time: 07:46 called to room 4413 due to code green and the assigned physician is not available. A fib with rvr and rates in the 160's. Pt is on the monitor, able to answer questions, denies any shortness of breath. Current VS sbp 110's, pulse 160's. gen - no acute distress heart - tachy, no audible murmurs lungs - ctab with good air movement abd - soft with present bowel sounds imp - a fib with rvr new onset - start diltiazem gtt - ordered - start digoxin IV - orders given by another covering physician - transfer to tele - start IVF - check labs - echo - cardiology consult
[2020-04-05 07:50] LABS: #Eosinphils 0.2 thou/uL (0.0-0.7); #Lymphocytes 1.5 thou/uL (1.20-3.40); #Monocytes 1.2 thou/uL (0.11-0.59); #Neutrophils 6.7 thou/uL (1.40-6.50); %Basophils 0.3 % (0.0-1.0); %Eosinophils 1.7 % (0.0-10.0); %Monocytes 12.2 % (0.0-10.0); %Neutrophils 69.8 % (42.0-75.0); Hemoglobin 12.9 g/dL (14.0-18.0); Mean Corpuscular HGB CONC 33.4 g/dL (32.0-36.0); Mean Corpuscular Hemoglobin 33.1 pg (27.0-31.0); Mean Corpuscular Volume 99.3 fL (78.0-98.0); Mean Platelet Volume 7.7 fL (7.4-10.4); Platelet Count 406 thou/uL (130-400); RBC Distribution Width 11.8 % (11.5-14.5); Red Blood Cell (RBC) Count 3.88 mill/uL (4.70-6.10); White Blood Cell (WBC) Count 9.7 thou/uL (4.8-10.8)
[2020-04-05 08:16] LABS: ALT (SGPT) 28 U/L (8-55); AST (SGOT) 31 U/L (5-34); Albumin 2.7 g/dL (3.4-4.8); Alkaline Phosphatase 71 U/L (40-110); Anion Gap 15 mmol/L (10-20); BUN (Urea Nitrogen) 13 mg/dL (8.4-25.7); Bilirubin, Total 6.1 mg/dL (0.2-1.2); Calc. Creatinine Clearance 122 mL/min (70-130); Calcium 7.5 mg/dL (7.8-10.44); Carbon Dioxide 20 mmol/L (23-31); Chloride 103 mmol/L (98-107); Globulin 2.1 g/dL (2.4-3.5); Glucose 106 mg/dL (80-115); Magnesium 1.8 mg/dL (1.6-2.6); Phosphorus 2.2 mg/dL (2.3-4.7); Potassium 3.7 mmol/L (3.5-5.1); Protein, Total 4.8 g/dL (5.8-8.1); Sodium 134 mmol/L (136-145)
[2020-04-05] MEDS: Enoxaparin Sodium 40 MG/0.4 ML SYRINGE SC SCH (08:27)
[2020-04-05] MEDS: Famotidine 20 MG TAB PO SCH (08:28)
--- NOTE | 2020-04-05 10:11 | PDOC.GSPN ---
Surgery Progress Note: Subj - Subjective Narrative: From an abdominal standpoint, the patient states he is doing well this morning. He is tolerating his clear liquid diet. He is passing flatus and having bowel movements. He feels much less distended. Unfortunately, last night, the patient went into atrial fibrillation with RVR. He is currently awaiting transfer to telemetry. He is on a Cardizem drip. Fortunately, he feels well Surgery Progress Note: Obj - Vital signs Vital signs: Vital Signs - Most Recent Temp Pulse Resp BP Pulse Ox 98.1 F 156 H 20 106/69 94 L 04/05/20 07:20 04/05/20 08:14 04/05/20 07:20 04/05/20 07:20 04/05/20 07:25 - Physical Exam Additional exam: General-[no acute distress, well-nourished] Head-[normocephalic, atraumatic] HEENT- [EOMI], [PERRLA] Neck-[trachea midline, supple] Lungs-[grossly clear to auscultation], [normal air movement] Heart-irregularly irregular, [no murmurs] Abdomen-[soft], mild distention with some tympany, appropriately tender around incision, [normal active bowel sounds], incisions clean dry and intact without erythema or drainage Musculosketal-[full range of motion], [no gross deformity] Psychiatric-[good insight, good judgment] Skin-[good turgor, no jaundice] Neuro- [GCS 15], [CN II-XII intact] Surgery Progress Note: Results - Labs Result Diagrams: 04/05/20 07:34 04/05/20 07:34 Lab results: Laboratory Results - last 12 hr 04/05/20 04/05/20 04/05/20 00:58 04:57 07:23 WBC RBC Hgb Hct MCV MCH MCHC RDW Plt Count MPV Neutrophils % Lymphocytes % Monocytes % Eosinophils % Basophils % Neutrophils # Lymphocytes # Monocytes # Eosinophils # Basophils # Sodium Potassium Chloride Carbon Dioxide Anion Gap BUN Creatinine Estimated GFR (MDRD) Glucose POC Glucose 110 H 97 104 H Calcium Phosphorus Magnesium Total Bilirubin AST ALT Alkaline Phosphatase Troponin I Serum Total Protein Albumin Globulin Albumin/Globulin Ratio 04/05/20 04/05/20 04/05/20 07:34 07:34 07:34 WBC 9.7 RBC 3.88 L Hgb 12.9 L Hct 38.6 L MCV 99.3 H MCH 33.1 H MCHC 33.4 RDW 11.8 Plt Count 406 H MPV 7.7 Neutrophils % 69.8 Lymphocytes % 16.0 L Monocytes % 12.2 H Eosinophils % 1.7 Basophils % 0.3 Neutrophils # 6.7 H Lymphocytes # 1.5 Monocytes # 1.2 H Eosinophils # 0.2 Basophils # 0.0 Sodium 134 L Potassium 3.7 Chloride 103 Carbon Dioxide 20 L Anion Gap 15 BUN 13 Creatinine 0.84 Estimated GFR (MDRD) Greater than 90 Glucose 106 POC Glucose Calcium 7.5 L Phosphorus 2.2 L Magnesium 1.8 Total Bilirubin 6.1 H AST 31 ALT 28 Alkaline Phosphatase 71 Troponin I 0.013 Serum Total Protein 4.8 L Albumin 2.7 L Globulin 2.1 L Albumin/Globulin Ratio 1.3 Surgery Progress Note: A/P - Problem (1) Atrial fibrillation Current Visit: Yes Code(s): I48.91 - UNSPECIFIED ATRIAL FIBRILLATION Status: Acute Assessment and Plan: New onset overnight. Cardiology consult has been placed. Patient is on Cardizem drip. He is not hypotensive. (2) Small bowel obstruction Current Visit: Yes Code(s): K56.609 - UNSP INTESTNL OBST, UNSP TO PARTIAL VERSUS COMPLETE OBST Status: Acute Assessment and Plan: Patient seems to recovering from his small bowel obstruction status post lysis of adhesion. I think he could be advanced to a full liquid diet. White blood cell count is normal.
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
[2020-04-05] MEDS ORDERED: Amiodarone 150 MG in Dextrose 5% in Water 100 ML IVPB SCH (12:15)
[2020-04-05] MEDS: Amiodarone 450 MG in Dextrose 5% in Water 250 ML IVPB SCH (12:50)
--- NOTE | 2020-04-05 13:51 | PDOC.HOSPP ---
- Subjective Encounter Date: 04/05/20 Encounter Time: 08:10 Subjective: Patient is seen shortly after DILIA PAULINO has been called. He had a shower this morning and then felt little grayish. He had A. fib with RVR this is his first occurrence. For the most part he did not feel any chest discomfort or palpitations. His blood pressure is stable. digoxin 0.5 mg dose given and the Cardizem drip started. Transferred him to telemetry. - Objective Vital Signs & Weight: Vital Signs (12 hours) Temp Pulse Resp BP Pulse Ox 04/05/20 12:37 156 H 04/05/20 12:05 94 L 04/05/20 11:45 98.7 F 163 H 20 106/76 96 04/05/20 11:05 162 H 96 04/05/20 10:00 163 H 96 04/05/20 09:00 160 H 18 96 04/05/20 08:14 156 H 04/05/20 08:12 158 H 04/05/20 08:00 156 H 94 L 04/05/20 07:25 104 H 94 L 04/05/20 07:20 98.1 F 162 H 20 109/69 91 L Weight Admit Weight 217 lb 5 oz Weight 217 lb 5 oz I&O: 04/04/20 04/05/20 04/06/20 06:59 06:59 06:59 Intake Total 1720 2860 1140 Output Total 650 800 Balance 1070 2060 1140 Result Diagrams: 04/05/20 07:34 04/05/20 07:34 Additional Labs: Accuchecks 04/05/20 04/05/20 04/05/20 11:16 07:23 04:57 POC Glucose 120 H 104 H 97 04/05/20 04/04/20 00:58 20:42 POC Glucose 110 H 123 H Hospitalist ROS - Medication Medications: Active Medications Generic Name Dose Route Start Last Admin Trade Name Freq PRN Reason Stop Dose Admin Digoxin 0.25 mg 04/05/20 12:00 04/05/20 12:37 Digoxin 0.5 Mg/2 Ml Amp SLOW IVP 04/05/20 14:00 0.25 mg NOW CARL Administration Famotidine 20 mg 04/02/20 21:00 04/05/20 08:19 Famotidine/Pf 20 Mg/2ml Vial SLOW IVP 20 mg Q12HR CARL Administration Famotidine 20 mg 04/02/20 21:00 04/05/20 08:28 Famotidine 20 Mg Tab PO Not Given Q12HR [facility] Amiodarone HCl 150 mg/ 103 mls @ 10 mls/min 04/05/20 12:15 04/05/20 12:39 Dextrose/Water IVPB 04/05/20 14:15 103 mls NOW CARL Administration Hospitalist Exam Vitals: Vital Signs (12 hours) Temp Pulse Resp BP Pulse Ox 04/05/20 12:37 156 H 04/05/20 12:05 94 L 04/05/20 11:45 98.7 F 163 H 20 106/76 96 04/05/20 11:05 162 H 96 04/05/20 10:00 163 H 96 04/05/20 09:00 160 H 18 96 04/05/20 08:14 156 H 04/05/20 08:12 158 H 04/05/20 08:00 156 H 94 L 04/05/20 07:25 104 H 94 L 04/05/20 07:20 98.1 F 162 H 20 109/69 91 L Weight Admit Weight 217 lb 5 oz Weight 217 lb 5 oz General Appearance: NAD, awake alert Eye: PERRL ENT: normocephalic atraumatic Neck: supple Heart: normal peripheral pulses, irregular Respiratory: CTAB Gastrointestinal: soft, normal bowel sounds Extremities: 1+ LE edema Neurological: cranial nerve grossly intact, no focal deficits Psychiatric: normal affect, normal behavior, A&O x 3 Hosp A/P - Plan 64 year old male with prediabetes who was admitted with abdominal pain, found to have small bowel obstruction New onset A. fib later converted to a flutter and no prior history -He is on amiodarone and Lovenox twice daily dose. -Believe probably triggered due to acute events of recent surgery -We will follow-up on TSH level as well as echo. History of mitral valve prolapse roughly 40 years ago High Grade, pSBO - likely d/t adhesions from previous surgery -failed conservative mgt. -s/p ex-lap with TERRI on 04/02 -cont routine post-op manage as per surgery. Urinary retention - Resolved. Cont flomax Pneumonia due to COVID-19 -No significant respiratory symptoms. Continue monitor supportive cares. Hyponatremia - mild, normalized. Prediabetes - startging him back on Metformin as p.o. intake started. His creatinine normal range On clear liquid diet Continue ambulation.
[2020-04-05] MEDS ORDERED: Diltiazem HCl 125 MG, Admixture Fee 1 EACH in Sodium Chloride 0.9% 100 ML IVPB SCH (14:45)
[2020-04-05 14:46] LABS: Platelet Count 429 thou/uL (130-400)
[2020-04-05] MEDS ORDERED: Simethicone Chewable 80 MG TAB PO PRN (15:52)
[2020-04-05] MEDS ORDERED: Mag-Al Plus 1200 MG/1200 MG/120 MG/30 ML UDCUP PO PRN (15:52)
[2020-04-05] MEDS: Enoxaparin Sodium 100 MG/ML SYRINGE SC SCH (21:00)
[2020-04-06] MEDS: Amiodarone 450 MG in Dextrose 5% in Water 250 ML IVPB SCH (00:50)
[2020-04-06 05:42] LABS: #Eosinphils 0.3 thou/uL (0.0-0.7); #Lymphocytes 1.5 thou/uL (1.20-3.40); #Monocytes 1.2 thou/uL (0.11-0.59); #Neutrophils 6.4 thou/uL (1.40-6.50); %Basophils 0.5 % (0.0-1.0); %Eosinophils 3.7 % (0.0-10.0); %Lymphocytes 15.6 % (21.0-51.0); %Monocytes 12.3 % (0.0-10.0); %Neutrophils 67.9 % (42.0-75.0); Hemoglobin 12.1 g/dL (14.0-18.0); Mean Corpuscular HGB CONC 32.7 g/dL (32.0-36.0); Mean Corpuscular Hemoglobin 32.9 pg (27.0-31.0); Mean Platelet Volume 7.6 fL (7.4-10.4); Platelet Count 402 thou/uL (130-400); RBC Distribution Width 11.9 % (11.5-14.5); Red Blood Cell (RBC) Count 3.69 mill/uL (4.70-6.10); White Blood Cell (WBC) Count 9.4 thou/uL (4.8-10.8)
[2020-04-06 06:00] LABS: Anion Gap 12 mmol/L (10-20); BUN (Urea Nitrogen) 10 mg/dL (8.4-25.7); Calc. Creatinine Clearance 122 mL/min (70-130); Calcium 7.4 mg/dL (7.8-10.44); Carbon Dioxide 24 mmol/L (23-31); Chloride 104 mmol/L (98-107); Glucose 107 mg/dL (80-115); Potassium 3.7 mmol/L (3.5-5.1); Sodium 136 mmol/L (136-145)
[2020-04-06] MEDS: Enoxaparin Sodium 100 MG/ML SYRINGE SC SCH ×2 (08:06→22:11)
[2020-04-06] MEDS: metFORMIN 500 MG TAB PO SCH (08:06)
[2020-04-06] MEDS: Pantoprazole 40 MG VIAL IVP SCH (08:06)
[2020-04-06] MEDS ORDERED: HYDROcodone/Acetaminophen 7.5/325 mg Tablet PO PRN (10:53)
--- NOTE | 2020-04-06 11:17 | PDOC.GSPN ---
Surgery Progress Note: Subj - Subjective Patient reports: tolerating liquids well (No nausea, had a few bowel movements) Surgery Progress Note: Obj - Vital signs Vital signs: Vital Signs - Most Recent Temp Pulse Resp BP Pulse Ox 98.3 F 78 18 132/66 95 04/06/20 07:13 04/06/20 07:13 04/06/20 07:13 04/06/20 07:13 04/06/20 07:13 - Physical Exam General: no distress Abdomen: soft, nondistended, appropriately tender Wound: healing well Surgery Progress Note: Results - Labs Result Diagrams: 04/06/20 05:21 04/06/20 05:21 Lab results: Laboratory Results - last 12 hr 04/04/20 04/05/20 04/06/20 16:28 23:31 05:21 WBC RBC Hgb Hct MCV MCH MCHC RDW Plt Count MPV Neutrophils % Lymphocytes % Monocytes % Eosinophils % Basophils % Neutrophils # Lymphocytes # Monocytes # Eosinophils # Basophils # Sodium 136 Potassium 3.7 Chloride 104 Carbon Dioxide 24 Anion Gap 12 BUN 10 Creatinine 0.84 Estimated GFR (MDRD) Greater than 90 Glucose 107 POC Glucose 109 H 120 H Calcium 7.4 L Free T4 04/06/20 04/06/20 04/06/20 05:21 05:21 05:59 WBC 9.4 RBC 3.69 L Hgb 12.1 L Hct 37.1 L MCV 101.0 H MCH 32.9 H MCHC 32.7 RDW 11.9 Plt Count 402 H MPV 7.6 Neutrophils % 67.9 Lymphocytes % 15.6 L Monocytes % 12.3 H Eosinophils % 3.7 Basophils % 0.5 Neutrophils # 6.4 Lymphocytes # 1.5 Monocytes # 1.2 H Eosinophils # 0.3 Basophils # 0.0 Sodium Potassium Chloride Carbon Dioxide Anion Gap BUN Creatinine Estimated GFR (MDRD) Glucose POC Glucose 92 Calcium Free T4 1.36 04/06/20 10:28 WBC RBC Hgb Hct MCV MCH MCHC RDW Plt Count MPV Neutrophils % Lymphocytes % Monocytes % Eosinophils % Basophils % Neutrophils # Lymphocytes # Monocytes # Eosinophils # Basophils # Sodium Potassium Chloride Carbon Dioxide Anion Gap BUN Creatinine Estimated GFR (MDRD) Glucose POC Glucose 127 H Calcium Free T4 Surgery Progress Note: A/P - Problem (1) Small bowel obstruction Current Visit: Yes Code(s): K56.609 - UNSP INTESTNL OBST, UNSP TO PARTIAL VERSUS COMPLETE OBST Status: Acute - Plan Plan: Doing well from surgical standpoint -advance to regular diet -add norco for pain
--- NOTE | 2020-04-06 13:30 | PDOC.HOSPP ---
- Subjective Encounter Date: 04/06/20 Encounter Time: 10:45 Subjective: Patient feels that his abdominal discomfort is much better. Tolerating a liquid diet. Being advanced to regular diet today. Echo is currently in progress. He is reluctant to take any new medications specifically anticoagulant. Patient's telemetry monitoring did not show any A. fib or flutter overnight or this morning. in sinus rhythm. - Objective Vital Signs & Weight: Vital Signs (12 hours) Temp Pulse Resp BP Pulse Ox 04/06/20 11:15 98.6 F 76 18 143/73 H 96 04/06/20 07:13 98.3 F 78 18 132/66 95 04/06/20 03:15 98.5 F 75 18 123/69 95 Weight Admit Weight 217 lb 5 oz Weight 217 lb 5 oz I&O: 04/05/20 04/06/20 04/07/20 06:59 06:59 06:59 Intake Total 2860 1500 Output Total 800 1150 Balance 2060 350 Result Diagrams: 04/06/20 05:21 04/06/20 05:21 Additional Labs: Accuchecks 04/06/20 04/06/20 04/05/20 10:28 05:59 23:31 POC Glucose 127 H 92 120 H 04/04/20 16:28 POC Glucose 109 H Hospitalist ROS - Medication Medications: Active Medications Generic Name Dose Route Start Last Admin Trade Name Freq PRN Reason Stop Dose Admin Enoxaparin Sodium 100 mg 04/05/20 21:00 04/06/20 08:06 Enoxaparin Sodium 100 Mg/Ml Syringe SC 100 mg 0900,2100 CARL Administration Amiodarone HCl 450 mg/ 259 mls @ 0 mls/hr 04/05/20 11:00 04/06/20 00:50 Dextrose/Water IVPB 259 mls INF CARL Administration Protocol Per Protocol Metformin HCl 500 mg 04/06/20 08:00 04/06/20 08:06 Metformin 500 Mg Tab PO 500 mg QAM-WM CARL Administration Pantoprazole Sodium 40 mg 04/06/20 09:00 04/06/20 08:06 Pantoprazole 40 Mg Vial IVP 40 mg DAILY CARL Administration Simethicone 80 mg 04/05/20 15:52 04/05/20 18:33 Simethicone Chewable 80 Mg Tab PO 80 mg PCHS PRN Administration Gas Pain Hospitalist Exam Vitals: Vital Signs (12 hours) Temp Pulse Resp BP Pulse Ox 04/06/20 11:15 98.6 F 76 18 143/73 H 96 04/06/20 07:13 98.3 F 78 18 132/66 95 04/06/20 03:15 98.5 F 75 18 123/69 95 Weight Admit Weight 217 lb 5 oz Weight 217 lb 5 oz General Appearance: NAD, awake alert Eye: PERRL ENT: normocephalic atraumatic Neck: supple Heart: RRR Respiratory: CTAB, normal chest expansion Gastrointestinal: soft, normal bowel sounds Extremities: 1+ LE edema Neurological: no weakness, no focal deficits Psychiatric: normal affect, normal behavior, A&O x 3 Hosp A/P - Plan 64 year old male with prediabetes who was admitted with abdominal pain, found to have small bowel obstruction New onset A. fib later converted to a flutter and no prior history -He is on amiodarone and Lovenox twice daily dose. -Believe probably triggered due to acute events of recent surgery -We will follow-up on TSH level as well as echo. History of mitral valve prolapse roughly 40 years ago High Grade, pSBO - likely d/t adhesions from previous surgery -failed conservative mgt. -s/p ex-lap with TERRI on 04/02 -cont routine post-op manage as per surgery. Urinary retention - Resolved. Cont flomax Pneumonia due to COVID-19 -No significant respiratory symptoms. Continue monitor supportive cares. Hyponatremia - mild, normalized. Prediabetes - startging him back on Metformin as p.o. intake started. His creatinine normal range On clear liquid diet Continue ambulation. 8th Patient's telemetry monitoring did not show any A. fib or flutter overnight or this morning. in sinus rhythm. -Advancing the diet to regular -He is on Lovenox twice daily dose TSH in the normal range as well as free T4. Since this is transient A. fib partially related to the acute stress of surgery and he is being in sinus rhythm at least 12 to 14 hours, will continue monitoring. If he is continuously in sinus rhythm then he may not need to oral anticoagulant upon discharge Echo is pending.
[2020-04-06] MEDS: Dronedarone HCl 400 MG TAB PO SCH (16:47)
[2020-04-07 05:22] LABS: Anion Gap 16 mmol/L (10-20); BUN (Urea Nitrogen) 8 mg/dL (8.4-25.7); Calc. Creatinine Clearance 137 mL/min (70-130); Calcium 7.7 mg/dL (7.8-10.44); Carbon Dioxide 22 mmol/L (23-31); Chloride 103 mmol/L (98-107); Glucose 105 mg/dL (80-115); Potassium 3.5 mmol/L (3.5-5.1); Sodium 137 mmol/L (136-145)
[2020-04-07 05:31] LABS: Band 5 % (5-11); Eosinophils 1 % (0-10); Lymphocytes 11 % (21-51); MDiff Complete? YES; Mean Corpuscular HGB CONC 32.6 g/dL (32.0-36.0); Mean Corpuscular Hemoglobin 32.8 pg (27.0-31.0); Mean Platelet Volume 8.9 fL (7.4-10.4); Metamyelocyte 1 % (0-0); Monocytes 9 % (0-10); Myelocyte 2 % (0-0); Neutrophil 71 % (42-75); Platelet Count 415 thou/uL (130-400); Platelet Morphology Comment Appears Increased; RBC Distribution Width 12.3 % (11.5-14.5); Red Blood Cell (RBC) Count 3.97 mill/uL (4.70-6.10); White Blood Cell (WBC) Count 16.1 thou/uL (4.8-10.8)
[2020-04-07] MEDS: metFORMIN 500 MG TAB PO SCH (07:52)
[2020-04-07] MEDS: Dronedarone HCl 400 MG TAB PO SCH (07:52)
[2020-04-07] MEDS: Pantoprazole 40 MG VIAL IVP SCH (07:53)
[2020-04-07] MEDS: Enoxaparin Sodium 100 MG/ML SYRINGE SC SCH (07:53)
[2020-04-07] MEDS ORDERED: Aspirin 325 mg Enteric Coated Tablet PO SCH (09:00)
--- NOTE | 2020-04-07 12:46 | PDOC.HOSPP ---
- Subjective Encounter Date: 04/07/20 Encounter Time: 10:28 Subjective: Patient looks good. Discussed with the as well as patient. Patient is started on Multaq. His rate is controlled pulse in the 70s. He has no distress. Tolerating the diet. For some reason his white count is jumped today - Objective Vital Signs & Weight: Vital Signs (12 hours) Temp Pulse Resp BP Pulse Ox 04/07/20 11:08 98.9 F 72 18 136/68 96 04/07/20 07:36 98.7 F 71 18 138/65 95 04/07/20 04:00 98.5 F 72 18 121/64 92 L Weight Admit Weight 217 lb 5 oz Weight 217 lb 5 oz I&O: 04/06/20 04/07/20 04/08/20 06:59 06:59 06:59 Intake Total 1500 2232 Output Total 1150 1850 Balance 350 382 Result Diagrams: 04/07/20 04:07 04/07/20 04:07 Additional Labs: Accuchecks 04/07/20 04/07/20 04/06/20 10:54 04:03 19:39 POC Glucose 141 H 111 H 115 H 04/06/20 17:17 POC Glucose 102 H Hospitalist ROS - Medication Medications: Active Medications Generic Name Dose Route Start Last Admin Trade Name Dashawn PRN Reason Stop Dose Admin Aspirin 325 mg 04/07/20 09:00 04/07/20 07:52 Aspirin 325 Mg Enteric Coated Tablet PO 325 mg DAILY CARL Administration Dronedarone 400 mg 04/06/20 17:00 04/07/20 07:52 Dronedarone Hcl 400 Mg Tab PO 400 mg BID-WM CARL Administration Enoxaparin Sodium 100 mg 04/05/20 21:00 04/07/20 07:53 Enoxaparin Sodium 100 Mg/Ml Syringe SC 100 mg 0900,2100 CARL Administration Metformin HCl 500 mg 04/06/20 08:00 04/07/20 07:52 Metformin 500 Mg Tab PO 500 mg QAM-WM CARL Administration Pantoprazole Sodium 40 mg 04/06/20 09:00 04/07/20 07:53 Pantoprazole 40 Mg Vial IVP 40 mg DAILY CARL Administration Simethicone 80 mg 04/05/20 15:52 04/05/20 18:33 Simethicone Chewable 80 Mg Tab PO 80 mg PCHS PRN Administration Gas Pain Hospitalist Exam Vitals: Vital Signs (12 hours) Temp Pulse Resp BP Pulse Ox 04/07/20 11:08 98.9 F 72 18 136/68 96 04/07/20 07:36 98.7 F 71 18 138/65 95 04/07/20 04:00 98.5 F 72 18 121/64 92 L Weight Admit Weight 217 lb 5 oz Weight 217 lb 5 oz General Appearance: NAD, awake alert Eye: PERRL ENT: normocephalic atraumatic Neck: supple Heart: RRR Respiratory: CTAB, normal chest expansion Gastrointestinal: soft, normal bowel sounds Neurological: no focal deficits Psychiatric: normal affect, normal behavior, A&O x 3 Hosp A/P - Plan 64 year old male with prediabetes who was admitted with abdominal pain, found to have small bowel obstruction New onset A. fib later converted to a flutter and no prior history -He is on amiodarone and Lovenox twice daily dose. -Believe probably triggered due to acute events of recent surgery -We will follow-up on TSH level as well as echo. History of mitral valve prolapse roughly 40 years ago High Grade, pSBO - likely d/t adhesions from previous surgery -failed conservative mgt. -s/p ex-lap with TERRI on 04/02 -cont routine post-op manage as per surgery. Urinary retention - Resolved. Cont flomax Pneumonia due to COVID-19 -No significant respiratory symptoms. Continue monitor supportive cares. Hyponatremia - mild, normalized. Prediabetes - startging him back on Metformin as p.o. intake started. His creatinine normal range On clear liquid diet Continue ambulation. 8th Patient's telemetry monitoring did not show any A. fib or flutter overnight or this morning. in sinus rhythm. -Advancing the diet to regular -He is on Lovenox twice daily dose TSH in the normal range as well as free T4. Since this is transient A. fib partially related to the acute stress of surgery and he is being in sinus rhythm at least 12 to 14 hours, will continue monito ring. If he is continuously in sinus rhythm then he may not need to oral anticoagulant upon discharge Echo is pending. 9th -Started on Multaq -Still on full dose Lovenox -Need to transition to Eliquis or Xarelto his echo is normal with no valvular abnormalities. We will leave that to the discretion of marker hand to choose the oral anticoagulant. Currently he is on fiber restricted soft diet. Ambulating without any distress. Home disposition after clearance from surgery and marker hand
[2020-04-07 13:01] LABS: #Eosinphils 0.2 thou/uL (0.0-0.7); #Monocytes 1.6 thou/uL (0.11-0.59); %Basophils 0.1 % (0.0-1.0); %Lymphocytes 11.6 % (21.0-51.0); %Monocytes 9.6 % (0.0-10.0); %Neutrophils 77.7 % (42.0-75.0); Hemoglobin 12.7 g/dL (14.0-18.0); Mean Corpuscular HGB CONC 32.8 g/dL (32.0-36.0); Mean Corpuscular Hemoglobin 33.3 pg (27.0-31.0); Mean Platelet Volume 7.6 fL (7.4-10.4); Platelet Count 416 thou/uL (130-400); RBC Distribution Width 12.1 % (11.5-14.5); Red Blood Cell (RBC) Count 3.82 mill/uL (4.70-6.10); White Blood Cell (WBC) Count 16.8 thou/uL (4.8-10.8)
--- NOTE | 2020-04-07 14:37 | RAD ---
PORTABLE CHEST: 04/07/20 HISTORY: Increased white blood cell count. COMPARISON: 03/27/20. Lungs appear clear of infiltrate. No significant change from the prior study. Mild increased markings in the mid and lower lungs appear stable. Heart and mediastinum unremarkable. IMPRESSION: No evidence of acute interval change. POS: AGW
--- NOTE | 2020-04-07 14:57 | PDOC.DS.DS ---
Provider Date of Admission: 03/29/20 08:12 Admitting Provider: Jessica Grimes MD Primary Care Physician: OUT OF TOWN Course Hospital Course: 64 year old male with prediabetes who was admitted with abdominal pain, found to have small bowel obstruction New onset A. fib later converted to a flutter and no prior history -He is on amiodarone and Lovenox twice daily dose. -Believe probably triggered due to acute events of recent surgery -We will follow-up on TSH level as well as echo. History of mitral valve prolapse roughly 40 years ago High Grade, pSBO - likely d/t adhesions from previous surgery -failed conservative mgt. -s/p ex-lap with TERRI on 04/02 Urinary retention - Resolved. Cont flomax Pneumonia due to COVID-19 -No significant respiratory symptoms. Continue monitor supportive cares. Hyponatremia - mild, normalized. Prediabetes - startging him back on Metformin as p.o. intake started. His creatinine normal range New onset of A. fib TSH in the normal range as well as free T4. Likely related to the acute stress of surgery Echo showed normal EF and no valvular abnormalities. Cleared by the specialist to general surgery and linotypist. Tolerating soft diet. Clinically sound enough to be discharged home today. Aloe up with general surgery and linotypist in 1 to 2 weeks. Lab Results: 04/07/20 12:52 04/07/20 04:07 Abnormal Lab Results - Last 48 hrs 04/06/20 05:21: Calcium 7.4 L 04/06/20 05:21: RBC 3.69 L, Hgb 12.1 L, Hct 37.1 L, MCV 101.0 H, MCH 32.9 H, Plt Count 402 H, Lymphocytes % 15.6 L, Monocytes % 12.3 H, Monocytes # 1.2 H 04/07/20 04:07: Carbon Dioxide 22 L, BUN 8 L, Calcium 7.7 L 04/07/20 04:07: WBC 16.1 H, RBC 3.97 L, Hgb 13.0 L, Hct 39.9 L, MCV 101.0 H, MCH 32.8 H, Plt Count 415 H, Lymphocytes % (Manual) 11 L, Myelocytes % 2 H, Plt Morphology Comment Appears Increased H 04/07/20 12:52: WBC 16.8 H, RBC 3.82 L, Hgb 12.7 L, Hct 38.8 L, MCV 102.0 H, MCH 33.3 H, Plt Count 416 H, Neutrophils % 77.7 H, Lymphocytes % 11.6 L, Neutrophils # 13.0 H, Monocytes # 1.6 H Vitals: Vital Signs (12 hours) Temp Pulse Resp BP Pulse Ox 04/07/20 11:08 98.9 F 72 18 136/68 96 04/07/20 07:36 98.7 F 71 18 138/65 95 04/07/20 04:00 98.5 F 72 18 121/64 92 L Weight Admit Weight 217 lb 5 oz Weight 217 lb 5 oz Physical Exam: The patient was seen and examined on the day of discharge. Plan Prescriptions: Aspirin [Ecotrin Regular Strength] 325 mg PO DAILY 30 Days #30 tab Dronedarone HCl [Multaq] 400 mg PO BID-WM 30 Days #60 tab Home Medications: Medication Instructions Recorded Confirmed Type Doxycycline Monohydrate 100 mg PO BID 03/29/20 03/29/20 History metFORMIN [Glucophage] 500 mg PO QAM-WM 03/29/20 03/29/20 History Aspirin [Ecotrin Regular Strength] 325 mg PO DAILY 30 Days #30 tab 04/07/20 Rx Dronedarone HCl [Multaq] 400 mg PO BID-WM 30 Days #60 tab 04/07/20 Rx Allergies: No Known Allergies Allergy (Verified 03/29/20 10:27) Discharge Instructions:: PCP follow-up in 1 week Follow-up with linotypist Dr. Gaston in 1 to 2 weeks Activity:: Activity as Tolerated Nourishment:: Heart Healthy Diet Referrals: [facility],OUT OF [Primary Care Provider] - Romero Gaston MD [Active] - 14 Days (Please call to make an appointment. ) Lito Gregorio MD [Active] - 14 Days (Please call to make an appointment. ) Disposition: HOME Quality CORE MEASURES:: N/A
--- NOTE | 2020-04-07 14:59 | PRG ---
DATE OF SERVICE: 04/07/2020 SUBJECTIVE: Mr. Carson had tolerated the regular diet without difficulty, had a bowel movement. OBJECTIVE: VITAL SIGNS: He is afebrile. Vital signs are stable. ABDOMEN: Soft, nontender, nondistended. His midline incision is healing well without evidence of infection or hernia. ASSESSMENT: Resolving small bowel obstruction, status post ex lap and small ventral hernia repair. PLAN: It is okay by me for him to be discharged home. He turned down any discharge medications from me. He does not desire any pain medicine or nausea medicine. Return to see me in the office in 2-week for followup. Job ID: [id number]
[2020-04-07 15:19] VITALS: BP 140/67; TEMP 99.7
[2020-04-07 15:22] LABS: Bacteria/HPF None Seen HPF (None Seen); Bilirubin Negative (Negative); Blood, Urine Negative (Negative); Clarity Clear (Clear); Glucose, Urine (Dipstick) Normal (Negative); Ketone, Urine Negative (Negative); Leukocyte Negative Leu/uL (Negative); Nitrite Negative (Negative); Protein, Urine (Dipstick) Negative (Neg-Trace); RBC/HPF 0-3 HPF (0-3); Specific Gravity, Urine 1.013 (1.002-1.036); Squamous Epithelial 0-3 HPF (0-3); Urobilinogen 3 mg/dL (Less than 2); WBC/HPF 0-3 HPF (0-3)
--- NOTE | 2020-04-09 14:57 | OP ---
DATE OF PROCEDURE: 04/02/2020 PREOPERATIVE DIAGNOSIS: Small-bowel obstruction secondary to adhesions and incisional hernia. POSTOPERATIVE DIAGNOSIS: Small-bowel obstruction secondary to adhesions and incisional hernia. PROCEDURE: 1. Incisional hernia repair with mesh. 2. Lysis of adhesions for small bowel obstruction. ANESTHESIA: Minimal. COMPLICATIONS: None. SPECIMEN: None. FINDINGS: There was a single incision in the upper abdomen in the area of the hernia causing a complete twist. TECHNIQUE: The patient was taken to the operating room and laid supine on the operating room table. After general anesthetic was obtained, the abdomen was shaved, prepped, and draped in a sterile fashion. A midline incision was made. The abdominal cavity was entered. Dilated small bowel could be seen and followed superiorly. There was a small fascial defect above my incision, and my incisions enlarged to include that. In this area, there was a complete twist of the small intestine secondary to one adhesion. This adhesion was lysed and the obstruction goes away and the intestine untwisted. Small bowel was then run proximal to the ligament of Treitz distal to the ileocecal valve without other obstruction. Bard Ventralex mesh was brought into the sterile field, the 8 cm [place], placed into the abdominal cavity above in the area of hernia. Its tails were sewn laterally to the edges of the fascia. The tails were cut at the level of the fascia. The midline fascia was closed from the entire abdomen from top to bottom using PDS. Subcutaneous tissues were irrigated, and the skin was closed using 3-0 Vicryl, 4-0 Monocryl, and Dermabond. The patient was en route to Recovery in stable condition. All instrument counts, needle counts, and lap counts were correct. Job ID: [id number]
--- NOTE | 2020-04-10 13:55 | EKG ---
Test Reason : Blood Pressure : / mmHG Vent. Rate : 196 BPM Atrial Rate : 197 BPM P-R Int : 000 ms QRS Dur : 080 ms QT Int : 228 ms P-R-T Axes : 000 058 262 degrees QTc Int : 411 ms Atrial fibrillation with rapid ventricular response Abnormal ECG No previous ECGs available Confirmed by DR. Sheldon EMMANUEL ([id number]) on 04/10/2020 1:55:40 PM Referred By: Confirmed By:DR. Sheldon EMMANUEL
--- NOTE | 2020-04-10 13:56 | EKG ---
Test Reason : CODE GREEN Blood Pressure : / mmHG Vent. Rate : 164 BPM Atrial Rate : 328 BPM P-R Int : 000 ms QRS Dur : 068 ms QT Int : 290 ms P-R-T Axes : 249 053 -65 degrees QTc Int : 478 ms Atrial flutter with 2:1 A-V conduction Nonspecific ST and T wave abnormality Abnormal ECG When compared with ECG of 05-APR-2020 07:32, (Unconfirmed) Atrial flutter has replaced Atrial fibrillation ST now depressed in Inferior leads Confirmed by DR. Sheldon EMMANUEL ([id number]) on 04/10/2020 1:55:57 PM Referred By: Confirmed By:DR. Sheldon EMMANUEL
== END 2020-04-07 16:10 | disposition home or self-care (01) | DRG 335 ==
LOC: ERS 06:21 → T4-A 08:12 → 2NO 04-05 12:30
PROVIDERS: ADMIT Internal Medicine; ATTEND Internal Medicine
PROC: 8E0ZXY6 Isolation (ICD-10-PCS; principal; 2020-03-29)
PROC: 0T9B70Z Drainage of Bladder with Drainage Device, Via Natural or Artificial Opening (ICD-10-PCS; 2020-04-02)
PROC: 0DN80ZZ Release Small Intestine, Open Approach (ICD-10-PCS; 2020-04-02)
PROC: 0WUF0JZ Supplement Abdominal Wall with Synthetic Substitute, Open Approach (ICD-10-PCS; 2020-04-02)
DX: K56.51 Intestinal adhesions [bands], with partial obstruction (principal); U07.1 COVID-19; J12.82 Pneumonia due to coronavirus disease 2019; E87.1 Hypo-osmolality and hyponatremia; I48.92 Unspecified atrial flutter; R33.9 Retention of urine, unspecified; I48.91 Unspecified atrial fibrillation; E86.0 Dehydration; R73.03 Prediabetes; K43.2 Incisional hernia without obstruction or gangrene; Z96.642 Presence of left artificial hip joint; Z79.899 Other long term (current) drug therapy; Z82.49 Family history of ischemic heart disease and other diseases of the circulatory system; Z90.81 Acquired absence of spleen; Z79.84 Long term (current) use of oral hypoglycemic drugs
CPT/HCPCS: 36415; 36416; 71045; 74018; 74019; 74250; 80048; 80053; 81001; 83735; 84100; 84439; 84443; 84484; 85025; 85610; 87635; 93005; 93010; 93306; 94760; 96374; C1781; C9113; J0282; J0694; J1160; J1200; J1650; J1885; J2250; J2405; J2704; J3010; J3490; J7070; Q9963; S0020; S0028; U0003; U0005